=== PATIENT | female | born 2000 | race Caucasian/White ===

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

== ENCOUNTER 2022-03-22 18:42 | Emergency (ER) | payer MEDICAID, SELFPAY ==
[2022-03-22] VITALS (17 sets, daily range): BP systolic 119–134; BP diastolic 61–82; PULSE 70–122; RESP 14–26; TEMP 36.5; O2SAT 94–100
--- NOTE | 2022-03-22 18:45 | RT.EKG_ITS ---
APPROVED REPORT Exam: Resting ECG Reason for Exam: palpitations Patient Location: E HR:84 bpm ECG Measurements Heart Rate 84 AXIS AR 136 P 56 QRSd 77 QRS 44 QT 349 T 45 QTc 414 Conclusion Sinus rhythm...normal P axis, V-rate 60- 99
--- NOTE | 2022-03-22 19:00 | DI.RAD_ITS ---
Exam(s) XR CHEST 2V PA LATERAL EXAM: XR CHEST 2V PA LATERAL CLINICAL HISTORY: palpitations TECHNIQUE: 2D digital imaging was performed. COMPARISON: CR XR CHEST 2V PA LATERAL from 03/09/2021 FINDINGS: The heart is not enlarged. The lungs are clear and well expanded. No pleural effusion seen. Mediastin al contours appear intact. IMPRESSION: Normal chest. RADIATION DOSE DELIVERED: Total DLP
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
[2022-03-22] MEDS: Normal Saline 1,000 ML 1000 ML IV (19:34)
[2022-03-22 19:42] LABS: Abs Immature Grans 0.04 10^3/uL (0.0-0.06); Absolute Basophil Count 0.06 10^3/uL (0.0-0.2); Absolute Monocyte Count 0.66 10^3/uL (0.1-0.8); Basophils % 0.5; Eosinophils % 1.7; HCT 44.2 % (36.0-46.0); HGB 14.4 g/dL (11.2-15.7); Immature Grans % 0.3; Lymphocytes % 35.1; MCHC 32.6 % (32.0-36.0); MCV 83 fL (80-95); Monocytes % 5.6; Neutrophils % 56.8; RBC 5.33 10^6/uL (3.93-5.22); RDW 13.3 % (11.7-14.6); RDW-SD 40.5 fL; WBC 11.78 10^3/uL (4.4-10.8)
[2022-03-22 19:51] LABS: Absolute Lymphocyte Count 4.13 10^3/uL (1.2-3.4); Absolute Neutrophil Count 6.69 10^3/uL (1.2-6.7)
[2022-03-22 19:55] LABS: Bilirubin Negative (Negative); Blood Negative (Negative); Clarity Clear (Clear); Glucose Negative (Negative); Ketones Negative (Negative); Leukocyte Esterase Negative (Negative); Nitrite Negative (Negative); Urobilinogen 0.2 EU/dL (Up TO 0.2); pH 6.5 (5-8)
[2022-03-22 20:02] LABS: Diff Comment PLT Morph Reviewed
--- NOTE | 2022-03-22 20:19 | DI.VRAD_ITS ---
PROCEDURE INFORMATION: Exam: XR Chest Exam date and time: 03/22/2022 20:05 Age: 21 years old Clinical indication: Other: Palpitations TECHNIQUE: Imaging protocol: Radiologic exam of the chest. Views: 2 views. COMPARISON: CR XR CHEST 2V PA LATERAL 03/09/2021 13:36 FINDINGS: Lungs: No consolidation. Pleural spaces: No pleural effusion. No pneumothorax. Heart/Mediastinum: No cardiomegaly. Bones/joints: No acute fracture. IMPRESSION: No acute cardiopulmonary pathology. Dictated and Authenticated by: Disha Shaikh MD. Ordering:JB Davis MD
[2022-03-22 20:20] LABS: ALT 15 U/L (14-59); AST 11 U/L (15-37); Albumin 3.6 g/dL (3.4-5.0); Alkaline Phosphatase 76 U/L (46-116); Anion Gap 8.6 mmol/L (3-11); BUN 10 mg/dL (7-18); Bilirubin, Total 0.2 mg/dL (0.2-1.0); CO2 28.4 mmol/L (21.0-32.0); CREATININE 0.9 mg/dL (0.55-1.02); Calcium 8.8 mg/dL (8.5-10.1); Chloride 105 mmol/L (98-107); Estimated GFR 94.44 (mL/min/1.73m2); Glucose 90 mg/dL (74-106); Magnesium 1.9 mg/dL (1.8-2.4); Sodium 142 mmol/L (136-145); TSH (W/Ref FT4) 2.01 uIU/mL (0.52-4.13); Total Protein 7.5 g/dL (6.4-8.2); Troponin I < 50 ng/L (<or=60)
== END 2022-03-22 20:40 | disposition home or self-care (01) ==
PROVIDERS: Emergency Provider Emergency Medicine; PCP Nurse Practitioner Family
DX: R00.2 Palpitations (principal)
CPT/HCPCS: 36415; 80053; 93005; 96360; 99284; 71046; 81003; 83735; 84443; 84484; 85025; 93010

== ENCOUNTER 2022-09-26 14:42 | Outpatient (CLI) | payer MEDICAID, SELFPAY ==
[2022-09-26 14:38] LABS: HCG Quant, Pregnancy 166 mIU/mL (1-3)
== END 2022-09-26 14:43 | disposition home or self-care (01) ==
LOC: LBO 14:43
PROVIDERS: PCP Nurse Practitioner Family; Visit Provider Obstetrics & Gynecology
DX: O20.0 Threatened abortion (principal)
CPT/HCPCS: 36415; 84702

== ENCOUNTER 2022-09-28 03:16 | Outpatient (CLI) | payer MEDICAID, SELFPAY ==
[2022-09-28 15:31] LABS: HCG Quant, Pregnancy 120 mIU/mL (1-3)
== END 2022-09-28 03:17 | disposition home or self-care (01) ==
LOC: LBO 03:16
PROVIDERS: PCP Nurse Practitioner Family; Visit Provider Obstetrics & Gynecology
DX: O20.0 Threatened abortion (principal)
CPT/HCPCS: 36415; 84702

== ENCOUNTER 2022-10-03 04:19 | Outpatient (CLI) | payer MEDICAID, SELFPAY ==
[2022-10-03 14:12] LABS: HCG Quant, Pregnancy 11 mIU/mL (1-3)
== END 2022-10-03 04:20 | disposition home or self-care (01) ==
LOC: LBO 04:19
PROVIDERS: PCP Nurse Practitioner Family; Visit Provider Obstetrics & Gynecology
DX: O20.0 Threatened abortion (principal)
CPT/HCPCS: 36415; 84702

== ENCOUNTER 2023-05-23 13:22 | Outpatient (CLI) | payer MEDICAID, SELFPAY ==
[2023-05-23 13:50] VITALS: BP 114/61; PULSE 96; TEMP 36.9
[2023-05-23 13:52] VITALS: BP 114/61; PULSE 96
[2023-05-23 14:42] LABS: ROM Plus Negative
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
== END 2023-05-23 15:55 ==
LOC: BCD 13:26 → OBS 13:27
PROVIDERS: PCP Nurse Practitioner Family; Visit Provider Obstetrics & Gynecology
DX: Z3A.29 29 weeks gestation of pregnancy (principal); Z53.21 Procedure and treatment not carried out due to patient leaving prior to being seen by health care provider; O47.03 False labor before 37 completed weeks of gestation, third trimester
CPT/HCPCS: 84112; 59025; G0378

== ENCOUNTER 2023-07-11 11:49 | Outpatient (REF) | payer MEDICAID, SELFPAY ==
[2023-07-11 13:41] LABS: COMMENT (LAB VIEW ONLY) 233.78 mg/dL; PROTEIN 35.7 mg/dL; Prot/Crea Ur Ratio 0.15
[2023-07-12 11:48] LABS: Fentanyl Scr w/Rfx Confirm Negative ng/mL (<1)
[2023-07-17 12:12] LABS: Buprenorphine Negative ng/mL (Cutoff: 5.0); Norbuprenorphine Negative ng/mL (Cutoff: 2.5)
== END 2023-07-11 11:50 | disposition home or self-care (01) ==
LOC: LBN 11:49
PROVIDERS: PCP Nurse Practitioner Family; Visit Provider Advanced Practice Midwife
DX: Z34.93 Encounter for supervision of normal pregnancy, unspecified, third trimester
CPT/HCPCS: 80307; 80348; 82565; 84156; 87081

== ENCOUNTER → 2023-07-16 00:28 | Outpatient (CLI) | payer MEDICAID, SELFPAY ==
--- NOTE | 2023-07-16 07:00 | DI.US_ITS ---
Exam(s) US OB NANDA WEIGHT EXAM: US OB NANDA WEIGHT CLINICAL HISTORY: growth,2 VESSEL UMB CORD,o09.899. TECHNIQUE: Transabdominal obstetrical ultrasound performed. COMPARISON: US US OB NANDA WEIGHT from 07/16/2020 US POCUS EXAM from 12/26/2022 FINDINGS: Number of fetuses: 1 position: CEPHALIC Placental location: There is a grade 2 posterior placenta. No evidence of previa. BIOMETRIC DATA: BPD: 8.47cm, 34weeks 1day HC: 31.85cm, 35weeks 6days AC: 29.73cm, 33weeks 5days FL: 6.66cm, 34weeks 2days EFW: 2,355.87g, 5lb 3.1oz, 3.1% Composite Age: 34weeks 4days KAYKAY: 08/23/2023 Heart Rate: 122bpm Amniotic fluid index: 11.23cm. Visually, amount of fluid is within normal limits. Umbilical Artery Doppler: PI: /prox: 0.81 mid: 0.98 placental/dist: 0.63 RI: Prox: 0.57 mid: 0.65 distal: 0.45 S/D: Prox: 2.3 mid: 2.9 distal: 1.8 IMPRESSION: 1. Single live intrauterine gestation as above. 2. Estimated weight is 2356gms. This is the 3rd percentile. 3. Amniotic fluid index is 11.2 cm. Visually within normal limits. DATA REPOSITORY:
== END ==
PROVIDERS: PCP Nurse Practitioner Family; Visit Provider Advanced Practice Midwife
DX: O09.893 Supervision of other high risk pregnancies, third trimester (principal); Z3A.34 34 weeks gestation of pregnancy
CPT/HCPCS: 76816

== ENCOUNTER 2023-07-16 09:30 | Outpatient (CLI) | payer MEDICAID, SELFPAY ==
[2023-07-16 09:36] VITALS: BP 112/70; PULSE 81; TEMP 36.9
[2023-07-16 09:44] VITALS: BP 112/70; PULSE 81
--- NOTE | 2023-07-16 12:53 | W.OBNST ---
Date of service: 07/16/23 Time of Service: 12:53 NST Evaluation Reason for NST Reasons for Nonstress Test: INTRA-UTERINE GROWTH RES Gestational Age Gestational Age in Weeks and Days: 37 Weeks and 2Days Test and Monitor Explained Test/Monitor Explained: Test Explained, Monitor Explained and Patient Verbalized Understanding Vital Signs Blood Pressure: 112/70 Pulse: 81 Temperature: 98.4 F NST Information Date on Monitor: 07/16/23 Time on Monitor: 09:37 Date off Monitor: 07/16/23 Time off Monitor: 09:52 Total Time on Monitor: 15 NST Interventions: PO Hydration NST Evaluation Patient States Movement: Present FHR Baseline: 125 Variability: Moderate 6-25 bpm Accelerations: 15x15 Decelerations: None NST Results: Reactive Note Ultrasound Done: N/A. NST Note Note: Pt is a female [id number] EGA who has transfered care to [facility] secondary to having moved to the area. Known 2 vessel cord. Desires . Pt had u/s performed today which showed nl NANDA and umbilical dopplers and with EFW 3rd placentile. I spoke to Sima Winters MD [facility] department who has agreed to see the pt this week for further assessment of growth. Pt was informed that if she requires IOL for Obstetrical indicaitons she would have the procedure performed at [facility] NST Reviewed and Verified by: Suad Martin
[2023-07-16 12:57] VITALS: BP 112/70; PULSE 81; TEMP 36.9
== END 2023-07-16 11:09 | disposition home or self-care (01) ==
LOC: BCD 09:31 → OBS 09:34
PROVIDERS: PCP Nurse Practitioner Family; Visit Provider Advanced Practice Midwife
DX: O36.5931 Maternal care for other known or suspected poor fetal growth, third trimester, fetus 1 (principal); Z3A.37 37 weeks gestation of pregnancy
CPT/HCPCS: 59025

== ENCOUNTER 2023-07-19 03:04 | Outpatient (CLI) | payer MEDICAID, SELFPAY ==
[2023-07-19 10:50] LABS: HCT 37.1 % (36.0-46.0); HGB 12.2 g/dL (11.2-15.7); MCH 27.4 pg (27.0-33.0); MCHC 32.9 % (32.0-36.0); MCV 83 fL (80-95); MPV 9.9 fL (8.0-11.0); Platelet Count 291 10^3/uL (130-400); RBC 4.46 10^6/uL (3.93-5.22); RDW 13.4 % (11.7-14.6); RDW-SD 40.5 fL; WBC 12.41 10^3/uL (4.4-10.8)
[2023-07-19 11:02] LABS: Glucose,1 Hr (Glucola) 83 mg/dL (80-140)
[2023-07-19 11:08] LABS: ALT 26 U/L (14-59); AST 15 U/L (15-37); Albumin 2.6 g/dL (3.4-5.0); Alkaline Phosphatase 166 U/L (46-116); Anion Gap 11.1 mmol/L (3-11); BUN 10 mg/dL (7-18); Bilirubin, Total 0.2 mg/dL (0.2-1.0); CO2 23.9 mmol/L (21.0-32.0); CREATININE 0.7 mg/dL (0.55-1.02); Calcium 8.7 mg/dL (8.5-10.1); Chloride 105 mmol/L (98-107); Glucose 81 mg/dL (74-106); Potassium 3.8 mmol/L (3.5-5.1); Sodium 140 mmol/L (136-145)
== END 2023-07-19 03:05 | disposition home or self-care (01) ==
LOC: LBO 03:05
PROVIDERS: PCP Nurse Practitioner Family; Visit Provider Advanced Practice Midwife
DX: O09.293 Supervision of pregnancy with other poor reproductive or obstetric history, third trimester; Z3A.37 37 weeks gestation of pregnancy
CPT/HCPCS: 36415; 80053; 82950; 85027

== ENCOUNTER 2023-07-20 11:43 | Outpatient (CLI) | payer MEDICAID, SELFPAY ==
[2023-07-20 14:20] VITALS: BP 108/61; PULSE 107; TEMP 38.6
[2023-07-20 14:23] VITALS: BP 108/61; PULSE 107
[2023-07-20 14:58] VITALS: BP 108/61; PULSE 107; RESP 16; TEMP 36.8
== END 2023-07-20 15:11 ==
LOC: BCD 11:45 → OBS 14:07
PROVIDERS: PCP Nurse Practitioner Family; Visit Provider Obstetrics & Gynecology Gynecology
DX: O36.5931 Maternal care for other known or suspected poor fetal growth, third trimester, fetus 1 (principal); Z3A.37 37 weeks gestation of pregnancy
CPT/HCPCS: 59025

== ENCOUNTER 2024-06-06 11:52 | Outpatient (REF) | payer MEDICAID, SELFPAY ==
[2024-06-09 12:06] LABS: Chlamydia Result Negative (Negative); GC Result Negative (Negative)
== END 2024-06-06 11:53 | disposition home or self-care (01) ==
LOC: LBN 11:52
PROVIDERS: PCP Nurse Practitioner Family; Visit Provider Advanced Practice Midwife
DX: Z11.3 Encounter for screening for infections with a predominantly sexual mode of transmission (principal)
CPT/HCPCS: 87491; 87591

== ENCOUNTER 2025-02-12 04:13 | Outpatient (CLI) | payer MEDICAID, SELFPAY ==
[2025-02-12 11:12] LABS: Abs Immature Grans 0.04 10^3/uL (0.0-0.06); HCT 40.9 % (36.0-46.0); HGB 13.4 g/dL (11.2-15.7); Immature Grans % 0.3 %; MCH 26.2 pg (27.0-33.0); MCHC 32.8 % (32.0-36.0); MCV 80 fL (80-95); MPV 9.6 fL (8.0-11.0); Platelet Count 275 10^3/uL (130-400); RBC 5.11 10^6/uL (3.93-5.22); RDW 14.9 % (11.7-14.6); RDW-SD 43.6 fL; WBC 11.58 10^3/uL (4.4-10.8)
[2025-02-12 11:22] LABS: Hemoglobin A1C 5.1 % (<5.7)
[2025-02-12 11:32] LABS: ALT 52 U/L (14-59); AST 19 U/L (15-37); Albumin 3.3 g/dL (3.4-5.0); Alkaline Phosphatase 93 U/L (46-116); Anion Gap 10.8 mmol/L (3-11); BUN 8 mg/dL (7-18); Bilirubin, Total 0.2 mg/dL (0.2-1.0); CO2 25.2 mmol/L (21.0-32.0); Calcium 9.2 mg/dL (8.5-10.1); Chloride 103 mmol/L (98-107); Estimated GFR 106.77 (mL/min/1.73m2); Glucose 76 mg/dL (74-106); Potassium 4.4 mmol/L (3.5-5.1); Sodium 139 mmol/L (136-145); Total Protein 7.7 g/dL (6.4-8.2)
[2025-02-12 20:09] LABS: Hepatitis C Ab w Rflx HCV PCR Negative (Negative)
[2025-02-12 20:14] LABS: HIV-1/2 Ag & Ab Screen Negative (Negative)
[2025-02-13 09:47] LABS: Rubella IgG Ab (UVM) Negative (See Note)
[2025-02-16 14:17] LABS: Syphilis IgG w/Reflex Nonreactive (Nonreactive)
== END 2025-02-12 04:14 | disposition home or self-care (01) ==
LOC: LBO 04:14
PROVIDERS: PCP Nurse Practitioner Family; Visit Provider Advanced Practice Midwife
DX: Z34.91 Encounter for supervision of normal pregnancy, unspecified, first trimester (principal)
CPT/HCPCS: 36415; 80053; 86787; 86803; 86850; 86900; 86901; 87340; 87389; 83036; 85025; 86762; 86780

== ENCOUNTER 2025-02-12 10:52 | Outpatient (REF) | payer MEDICAID, SELFPAY ==
[2025-02-12 12:48] LABS: PROTEIN 27.7 mg/dL; Prot/Crea Ur Ratio 0.10
[2025-02-12 12:53] LABS: Cannabinoids THC Positive (Negative); METHADONE URINE SCREEN Negative (Negative)
[2025-02-13 11:42] LABS: Chlamydia Result Negative (Negative); GC Result Negative (Negative)
[2025-02-13 11:54] LABS: Fentanyl Scr w/Rfx Confirm Negative ng/mL (<1)
== END 2025-02-12 10:53 | disposition home or self-care (01) ==
LOC: LBN 10:52
PROVIDERS: PCP Nurse Practitioner Family; Visit Provider Advanced Practice Midwife
DX: Z34.91 Encounter for supervision of normal pregnancy, unspecified, first trimester (principal)
CPT/HCPCS: 80307; 80348; 87491; 87591; 82565; 84156; 87086

== ENCOUNTER → 2025-05-05 16:26 | Outpatient (CLI) | payer MEDICAID, SELFPAY ==
--- NOTE | 2025-05-05 07:45 | DI.US_ITS ---
Exam(s) US OB 2-3 TRIMESTER EXAM: US OB 2-3 TRIMESTER CLINICAL HISTORY: survey at 19 wks Z34.91 Z34.90. TECHNIQUE: Transabdominal obstetrical ultrasound performed. COMPARISON: US POCUS EXAM from 02/26/2025 FINDINGS: Number of fetuses: 1 position: VARIED Placental location: POSTERIOR No evidence of previa. BIOMETRIC DATA: BPD: 4.61cm mm, 20weeks weeks HC: 19.05cm mm, 21weeks 2days weeks AC: 17.13cm mm, 22weeks 1day weeks FL: 3.6cm mm, 21weeks 3days weeks Cisterna magna: 4mm mm Cerebellum: 2.11cm cm Lateral ventricle: 5 mm EFW: 441.21g grams, 49.1% % Composite Age: 21weeks 2days weeks KAYKAY: 09/13/2025 Heart Rate: 158bpm BPM Amniotic fluid: Amount of fluid is visually within normal limits. ANATOMICAL SURVEY: Four-chambered heart: Unremarkable. LVOT: Unremarkable. RVOT: Unremarkable. Left-sided stomach: Unremarkable. urinary bladder: Unremarkable. Bilateral kidneys: Unremarkable. Three-vessel cord: Unremarkable. Cord insertion: Unremarkable. Posterior fossa:Unremarkable. ventricles: Unremarkable. nose: Unremarkable. lips: Unremarkable. palate: Unremarkable. spine: Unremarkable. Two arms and two legs: Unremarkable. IMPRESSION: 1. Single live intrauterine gestation with composite age of 21 weeks 2 days. 2. Normal anatomic survey. DATA REPOSITORY:
== END ==
LOC: DI 16:26
PROVIDERS: PCP Nurse Practitioner Family; Visit Provider Advanced Practice Midwife
DX: Z34.91 Encounter for supervision of normal pregnancy, unspecified, first trimester (principal)
CPT/HCPCS: 76805